=== PATIENT | female | born 1970 | race Caucasian/White ===

== ENCOUNTER 2024-08-30 07:54 | Emergency (ER) | payer OTHER, SELFPAY ==
[2024-08-30 08:28] VITALS: BP 112/79; PULSE 98; RESP 18; TEMP 36.5; O2SAT 96
[2024-08-30 08:38] LABS: Basophils % 0.1 %; Eosinophils % 0.3 %; Lymphocytes # 0.2 10^3/uL (0.8-4.8); Mean Corpuscular HGB Conc 31.9 g/dL (30-55); Mean Corpuscular Hemoglobin 30.4 pg (27-33); Mean Corpuscular Volume 95.3 fl (85-98); Monocytes # 0.3 10^3/uL (0.2-0.9); Monocytes % 3.6 %; Neutrophils # 8.36 10^3/uL (1.8-7.7); Neutrophils % 93.6 %; Nucleated Red Blood Cells % 0 %; Platelet Count 190 10^3/cmm (157-399); Red Blood Count 4.51 10^6/uL (3.85-5.65); Red Cell Distribution Width 12.3 % (12.1-15.1); White Blood Count 8.94 10^3/uL (3.29-11.43)
--- NOTE | 2024-08-30 08:40 | W.ED.NAVMDI ---
HPI - Nausea/Vomiting/Diarrhea General: Chief complaint: Nausea/Vomiting/Diarrhea Stated complaint: n/v Time Seen by Provider: 08/30/24 08:33 Source: patient Mode of arrival: ambulatory Limitations: no limitations History of Present Illness: 54-year-old female who states of last few days she has had flulike illness. She states she has been having some nausea vomiting body aches chills cough and just not feeling well. She denies any worse improving factors. Has traveled recently and been around a lot of people. Associated nausea: Yes Associated symtoms: Reports fatigue, malaise and nausea; Denies chest pain, dysuria or headache(s) Related Data Home Medications Medication Instructions Recorded Confirmed atorvastatin 10 mg tablet 10 mg PO DAILY 08/30/24 08/30/24 cholecalciferol (vitamin D3) 125 125 mcg PO DAILY 08/30/24 08/30/24 mcg (5,000 unit) tablet (Vitamin D3) fluoxetine 20 mg capsule 20 mg PO DAILY 08/30/24 08/30/24 dchxvrwa-cxomlvg-eert-iron fum 18 1 tab PO DAILY 08/30/24 08/30/24 mg-folic 600 mcg-vit K 80 mcg tablet (Multi For Her) naproxen 500 mg tablet,delayed 500 mg PO Q12H PRN Pain 08/30/24 08/30/24 release rizatriptan 10 mg tablet (Maxalt) 10 mg PO Q2H PRN headaches 08/30/24 08/30/24 Previous Rx's Medication Instructions Recorded ondansetron 4 mg disintegrating 4 mg PO Q6H PRN nausea and 08/30/24 tablet vomiting #14 tabs Allergies Allergy/AdvReac Type Severity Reaction Status Date / Time No Known Allergies Allergy Verified 08/30/24 08:31 Review of Systems Const: Reports: chills, body aches, fatigue and malaise; Denies: fever(s) or change in appetite Eyes: Denies: eye discomfort ENMT: Denies: throat pain or dental pain Card: Denies: chest pain Resp: Reports: non-productive cough; Denies: dyspnea GI: Reports: nausea; Denies: abdominal pain, vomiting or diarrhea : Denies: dysuria Musc: Denies: neck pain or back pain Skin/Breast: Denies: rash Neuro: Denies: headache(s) Physical Exam Const: COMMON NORMALS: no acute distress, patient oriented x3 and healthy appearing HENMT: COMMON NORMALS: normocephalic and atraumatic HEAD & SCALP: normocephalic and atraumatic Eye: COMMON NORMALS: Equal, round and reactive pupils present and EOMs intact bilaterally PUPIL: Yes Equal, round and reactive pupils present Neck/C-Spine: COMMON NORMALS: full ROM and supple Chest: COMMONS NORMALS: normal inspection of the chest and normal palpation of entire chest wall Resp: COMMON NORMALS: normal respiratory effort, No retractions, No use of accessory muscles and clear to auscultation bilaterally AUSCULTATION: clear to auscultation bilaterally Cardio: COMMON NORMALS: regular rate, regular rhythm and No murmurs present (Cardio) RATE: regular rate RHYTHM: regular rhythm GI: COMMON NORMALS: Normal to inspection, nondistended, normoactive bowel sounds present, Soft to palpation, non-tender and no masses PALPATION: Yes Soft to palpation Extremity: COMMON NORMALS: normal to inspection and full ROM Neuro: COMMON NORMALS: patient oriented x3, moves all extremities and no focal motor deficits Psych: COMMON NORMALS: mental status grossly normal, Normal thought process present and cooperative THOUGHT PROCESS: Normal thought process present Skin: COMMON NORMALS: no rashes or lesions noted and no wounds GENERAL SKIN EXAM: no rashes or lesions noted Course Vital Signs: Vital signs: Vital Signs Temperature 97.7 F 08/30/24 08:28 Pulse Rate 77 08/30/24 09:53 Respiratory Rate 18 08/30/24 08:28 Blood Pressure 120/63 08/30/24 09:53 Pulse Oximetry 100 08/30/24 09:53 Oxygen Delivery Me thod Room Air 08/30/24 08:28 MDM - Nausea/Vomiting/Diarrhea Medical Decision Making Patient presents here with nausea vomiting diarrhea along with cough congestion likely viral syndrome she is well-appearing here blood work imaging is normal she is stable for discharge follow-up with PCP return if worsening. Medical Records I reviewed the patient's medical records. Lab Data I reviewed the patient's lab results. 08/30/24 08:26 08/30/24 08:26 Radiology Impressions Chest X-Ray 08/30/24 09:33 IMPRESSION: No acute findings. Laboratory Results WBC 8.94 10^3/uL (3.29-11.43) 08/30/24 08: RBC 4.51 10^6/uL (3.85-5.65) 08/30/24 08: Hgb 13.70 g/dL (11.27-16.99) 08/30/24 08:26 Hct 43.0 % (36-47) 08/30/24 08: MCV 95.3 fl (85-98) 08/30/24 08: MCH 30.4 pg (27-33) 08/30/24 08: MCHC 31.9 g/dL (30-55) 08/30/24 08: RDW 12.3 % (12.1-15.1) 08/30/24 08: Plt Count 190 10^3/cmm (157-399) 08/30/24 08: MPV 11.0 fL (7.4-10.4) H 08/30/24 08:26 Neut % (Auto) 93.6 % 08/30/24 08:26 Lymph % (Auto) 2.0 % 08/30/24 08:26 [place] % (Auto) 3.6 % 08/30/24 08:26 Eos % (Auto) 0.3 % 08/30/24 08:26 Baso % (Auto) 0.1 % 08/30/24 08: Neut # (Auto) 8.36 10^3/uL (1.8-7.7) H 08/30/24 08:26 Lymph # (Auto) 0.2 10^3/uL (0.8-4.8) L 08/30/24 08:26 [place] # (Auto) 0.3 10^3/uL (0.2-0.9) 08/30/24 08:26 Eos # (Auto) 0.0 10^3/uL (0.0-0.8) 08/30/24 08: Baso # (Auto) 0.0 10^3/uL (0.0-0.1) 08/30/24 08: Nucleated RBC % (auto) 0 % 08/30/24 08: Nucleated RBCs # 0.0 /100WBC 08/30/24 08: Sodium 139 mmol/L (136-145) 08/30/24 08:26 Potassium 4.3 mmol/L (3.5-5.1) 08/30/24 08:26 Chloride 101 mmol/L (98-107) 08/30/24 08:26 Carbon Dioxide 26 mmol/L (22-29) 08/30/24 08:26 Anion Gap 16.3 (5-19) 08/30/24 08:26 BUN 18 mg/dL (6-20) 08/30/24 08:26 Creatinine 0.7 mg/dL (0.5-0.9) 08/30/24 08:26 GFR Calculation 87.2 mL/min (90-130) L 08/30/24 08:26 Glucose 110 mg/dL (65-115) 08/30/24 08:26 Calculated Osmolality 291 mOsm/kg (285-295) 08/30/24 08:26 Calcium 8.6 mg/dL (8.5-10.5) 08/30/24 08:26 Total Bilirubin 0.5 mg/dL (0.15-1.2) 08/30/24 08:26 AST 30 U/L (0-32) 08/30/24 08:26 ALT 31 U/L (0-33) 08/30/24 08:26 Alkaline Phosphatase 91 U/L (35-105) 08/30/24 08:26 Total Protein 6.5 g/dL (6.6-8.7) L 08/30/24 08:26 Albumin 3.9 g/dL (3.5-5.2) 08/30/24 08:26 Globulin 2.6 g/dL (1.3-4.6) 08/30/24 08:26 Lipase 19 U/L (13-60) 08/30/24 08:26 Urine Color Yellow (Yellow) 08/30/24 08:42 Urine Appearance Clear (CLEAR) 08/30/24 08:42 Urine pH 8.5 (5-7) A 08/30/24 08:42 Ur Specific [place] 1.022 (1.005-1.030) 08/30/24 08:42 Urine Protein Negative (Negative) 08/30/24 08:42 Urine Glucose (UA) Negative (Normal) 08/30/24 08:42 Urine Ketones Negative (Negative) 08/30/24 08:42 Urine Blood Negative (Negative) 08/30/24 08:42 Urine Nitrate Negative (Negative) 08/30/24 08:42 Urine Bilirubin Negative (Negative) 08/30/24 08:42 Urine Urobilinogen 1.0 mg/dL (Negative) 08/30/24 08:42 Ur Leukocyte Esterase Negative (Negative) 08/30/24 08:42 Urine RBC 0-2 /hpf (0-2) 08/30/24 08:42 Urine WBC 0-5 /hpf (0-5) 08/30/24 08:42 Ur Squamous Epith Cells 6-10 /hpf (0-5) 08/30/24 08:42 Amorphous Sediment Not Reportable 08/30/24 08:42 Urine Bacteria 1+ /hpf (NONE) H 08/30/24 08:42 Hyaline Casts 0.81 /lpf 08/30/24 08:42 Coronavirus (PCR) Negative (Negative) 08/30/24 08:27 Influenza A (PCR) Negative (Negative) 08/30/24 08:27 Influenza Type B (PCR) Negative (Negative) 08/30/24 08:27 RSV (PCR) Negative (Negative) 08/30/24 08:27 All radiology interpretation(s) finalized by discharge Discharge Plan Discharge Patient Disposition: Home Clinical Impression: Vomiting, Viral syndrome Condition: Stable Prescriptions: New ondansetron 4 mg tablet,disintegrating 4 mg PO Q6H PRN (Reason: nausea and vomiting) Qty: 14 0RF No Action atorvastatin 10 mg tablet 10 mg PO DAILY rizatriptan [Maxalt] 10 mg Tablet 10 mg PO Q2H PRN (Reason: headaches) Rx Instructions: do not exceed 3 doses per 24 hrs naproxen 500 mg Tablet,Delayed Release (Dr/Ec) 500 mg PO Q12H PRN (Reason: Pain) fluoxetine 20 mg capsule 20 mg PO DAILY cholecalciferol (vitamin D3) [Vitamin D3] 125 mcg (5,000 unit) Tablet 125 mcg PO DAILY Multi For Her 18 mg iron-600 mcg-80 mcg Tablet 1 tab PO DAILY Discharge Orders: Discharge ED (Routine); Ordered 08/30/24 Ordered By: Viola Mi Discharge Diet: Advance as tolerated Discharge Activity: Resume usual activity Patient Instructions: Acute Nausea and Vomiting (ED), Viral Syndrome (ED) Stand Alone Forms: Work/School Release Coding Level of Care Code 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
[2024-08-30 08:50] LABS: Bilirubin Urine Negative (Negative); Blood Urine Negative (Negative); Glucose Urine UA Negative (Normal); Ketones Urine Negative (Negative); Leukocyte Esterase Urine Negative (Negative); Nitrate Urine Negative (Negative); Protein Urine Negative (Negative); Specific Gravity, Urine 1.022 (1.005-1.030); Urine Appearance Clear (CLEAR); Urine Color Yellow (Yellow); pH Urine 8.5 (5-7)
[2024-08-30 08:54] LABS: Add Urine Microscopic? YES; Bacteria Urine 1+ /hpf; Hyaline Casts Urine 0.81 /lpf; RBC Urine 0-2 /hpf (0-2); WBC Urine 0-5 /hpf (0-5)
[2024-08-30] MEDS: ondansetron 2 mg/ML SDV 2 mL 4 MG IVP (08:55)
[2024-08-30] MEDS: ketorolac 30 mg/mL INJ 15 MG IVP (08:56)
[2024-08-30 08:59] LABS: Alanine Aminotransferase 31 U/L (0-33); Albumin Level 3.9 g/dL (3.5-5.2); Alkaline Phosphatase 91 U/L (35-105); Anion Gap 16.3 (5-19); Aspartate Amino Transferase 30 U/L (0-32); Blood Urea Nitrogen 18 mg/dL (6-20); Calcium 8.6 mg/dL (8.5-10.5); Carbon Dioxide 26 mmol/L (22-29); Chloride 101 mmol/L (98-107); Globulin 2.6 g/dL (1.3-4.6); Glomerular Filtration Rate 87.2 mL/min (90-130); Glucose 110 mg/dL (65-115); Lipase 19 U/L (13-60); Osmolality Calculated 291 mOsm/kg (285-295); Potassium 4.3 mmol/L (3.5-5.1); Sodium 139 mmol/L (136-145); Total Bilirubin 0.5 mg/dL (0.15-1.2); Total Protein 6.5 g/dL (6.6-8.7)
[2024-08-30 09:06] LABS: Covid PCR NEGATIVE (Negative); Influenza A NEGATIVE (Negative); Influenza B NEGATIVE (Negative); Respiratory Syncytial Virus Ce NEGATIVE (Negative)
--- NOTE | 2024-08-30 09:33 | XRR_ITS ---
PROCEDURE INFORMATION: Exam: XR Chest Exam date and time: 08/30/2024 9:35 AM Age: 54 years old Clinical indication: Cough TECHNIQUE: Imaging protocol: Radiologic exam of the chest. Views: 1 view. COMPARISON: No relevant prior studies available. FINDINGS: Lungs: Unremarkable. No consolidation. Pleural spaces: Unremarkable. No pleural effusion. No pneumothorax. Heart/Mediastinum: Unremarkable. No cardiomegaly. Bones/joints: Unremarkable. XR/XR chest 1V portable [id number] IMPRESSION: No acute findings.
[2024-08-30 09:46] VITALS: BP 120/63; PULSE 87; O2SAT 95
[2024-08-30 09:53] VITALS: BP 120/63; PULSE 77; O2SAT 100
== END 2024-08-30 09:57 | disposition home or self-care (01) ==
PROVIDERS: Emergency Provider Emergency Medicine
DX: R11.10 Vomiting, unspecified (principal); B34.9 Viral infection, unspecified; Z11.52 Encounter for screening for COVID-19
CPT/HCPCS: 36415; 71045; 80053; 81001; 83690; 85025; 87637; 96374; 96375; 99284; J1885; J2405